=== PATIENT | male | born 1975 | race Caucasian/White ===

== ENCOUNTER 2023-06-18 20:47 | Emergency (ER) | payer BC, SELFPAY ==
[2023-06-18 21:04] VITALS: BP 133/81; PULSE 107; RESP 18; TEMP 36.2; O2SAT 97
[2023-06-18 23:40] VITALS: BP 134/78; PULSE 96; RESP 16; O2SAT 98
[2023-06-19] MEDS: AMOXICILLIN/CLAVULANATE K 875-125 MG TAB 1 TABLET PO (01:34)
[2023-06-19] MEDS: TETANUS,DIPHTHERIA,AC PERTUSSIS ADULT (0.5 ML) BOOSTRIX IM (01:34)
[2023-06-19] MEDS: RABIES VACCINE (RABAVERT) 2.5 UNITS VIAL IM (02:39)
[2023-06-19] MEDS: RABIES IMMUNE GLOBULIN/PF 1,500 UNITS/5 ML VIAL 1500 UNITS IM (02:39)
--- NOTE | 2023-06-19 02:43 | ED.ANIMALBIT ---
HPI - Animal Bite General Chief Complaint: Animal Bite Stated Complaint: bit by racoon Time Seen by Provider: 06/19/23 00:29 Source: patient Mode of arrival: ambulatory Limitations: no limitations History of Present Illness HPI narrative: Patient is a 47-year-old male who presents the ED with report of a raccoon bite. Patient reports his 15-year-old daughter picked up by a raccoon that was standing in the middle of the street. Patient then took the raccoon from her and states the raccoon became aggravated and began to scratch and bite him. He sustained several bite and scratch burr to bilateral arms. They then put the raccoon in a cage in his garage. Patient states the raccoon was not acting appropriately. States it was very subdued, and had drainage from his eyes. Patient denies significant pain. Denies fevers. Tetanus unknown. Related Data Allergies Allergy/AdvReac Type Severity Reaction Status Date / Time No Known Drug Allergies Allergy Unknown Unknown Verified 06/18/23 20:47 Review of Systems Review of Systems: CONSTITUTIONAL: Denies fever, chills, or sweats. SKIN: See HPI NEUROLOGIC: Denies numbness or weakness. All systems reviewed & are unremarkable except as noted in HPI and below Exam Narrative: GENERAL: Well appearing, well-nourished, non-toxic, in no acute distress. HEAD: Normocephalic, atraumatic. RESPIRATORY: Airway patent, respirations nonlabored. CARDIOVASCULAR: Regular rate and rhythm without murmurs, rubs, or gallops. radial pulses 2+. MUSCULOSKELETAL: Moves all extremities. No gross deformities. SKIN: Warm, dry, normal color. Several small superficial skin abrasions to right forearm. Small skin avulsion to right medial distal 1st digit finger pad. Area of abrasion/puncture wound/bite shikha to left ventral forearm. No active bleeding. NEURO: A&O X3. Speech clear. Cranial nerves II-XII grossly intact. Steady gait. No ataxic movements. PSYCHIATRIC: Appropriate mood and affect. Normal interaction. Course Vital Signs Vital signs: Vital Signs Temperature 97.2 F L 06/18/23 21:04 Pulse Rate 107 H 06/18/23 21:04 Respiratory Rate 18 06/18/23 21:04 Blood Pressure 133/81 06/18/23 21:04 Pulse Oximetry 97 06/18/23 21:04 Oxygen Delivery Room Air 06/18/23 21:04 Temperature 97.2 F L 06/18/23 21:04 Pulse Rate 89 06/19/23 03:05 Respiratory Rate 20 06/19/23 03:05 Blood Pressure 136/86 06/19/23 03:05 Pulse Oximetry 97 06/19/23 03:05 Oxygen Delivery Room Air 06/18/23 21:04 MDM - Animal Bite MDM Narrative Medical decision making narrative: Discussed case with Christina Albarran, Infection Control, will follow with patient and contact tomorrow for further information. advised to contact animal control for management of raccoon. Patient given rabies vaccine and immunoglobulin in ED. Given scripts for subsequent vaccine series. Tetanus updated in the ED. Will be started on Augmentin for animal bite. Patient given strict return precautions. He agrees with plan. Discharged in stable condition. Medical Records Attestation: I reviewed the patient's medical records. Discharge Plan Discharge Clinical Impression: Raccoon bite, Rabies, need for prophylactic vaccination against Patient Disposition: Home, Self-Care Condition: Stable Instructions: Antibiotic Form, Rabies Vaccine (By injection), Rabies Immune Globulin (By injection), Animal Bite (ED), Rabies (ED) Additional Instructions: Take antibiotics as prescribed. Keep wounds clean and dry. Wash daily with simple soap and water. Obtain rabies vaccine series as directed at outpatient lab on days 3, 7, 14. Take prescription sheets with you. Contact animal Control for further evaluation of raccoon. Return to the ED if you experience worsening or severe pain, fevers, unable to keep down food or drink, confusion, or any other symptoms of concern. Prescriptions: New amoxicillin-pot clavulanate
--- NOTE | 2023-06-19 03:02 | PC.NURSE ---
Simran SANDERS infiltrated the rabies immunoglobulin and vaccine around the injury site to the left forearm and this RN administered the IM injections to the right deltoid and right vastus lateralis.
[2023-06-19 03:05] VITALS: BP 136/86; PULSE 89; RESP 20; O2SAT 97
== END 2023-06-19 03:07 | disposition home or self-care (01) ==
PROVIDERS: Emergency Provider Physician Assistant; PCP Physician Assistant
DX: S51.852A Open bite of left forearm, initial encounter (principal); S61.051A Open bite of right thumb without damage to nail, initial encounter; Z29.14 Encounter for prophylactic rabies immune globulin; Z23 Encounter for immunization; W55.51XA Bitten by raccoon, initial encounter
CPT/HCPCS: 90471; 90472; 90675; 90715; 96372; 99283; 90375; A9270

== ENCOUNTER 2023-06-22 12:44 | Emergency (ER) | payer BC, SELFPAY ==
[2023-06-22 12:45] VITALS: BP 206/136; PULSE 106; RESP 18; TEMP 36.8; O2SAT 99
--- NOTE | 2023-06-22 13:05 | ED.GENADULT ---
HPI - General Adult General Chief complaint: Recheck/Abnormal Lab/Rx Stated complaint: need rabies vaccine Time Seen by Provider: 06/22/23 12:50 History of Present Illness HPI narrative: 47-year-old male presenting to the emergency department for evaluation after raccoon bite. Patient reports his 15-year-old daughter picked up a raccoon, patient went to take the raccoon from the daughter and the rack and became agitated and attacked him. Related Data Allergies Allergy/AdvReac Type Severity Reaction Status Date / Time No Known Drug Allergies Allergy Unknown Unknown Verified 06/22/23 13:01 Review of Systems Review of Systems: All systems reviewed & are unremarkable except as noted in HPI and below Exam Narrative: APPEARANCE: Well appearing, no pain, no distress, well-nourished. HEAD: normocephalic, atraumatic. EYES: PERRLA/EOMI, conjunctivae clear. NOSE: Normal no drainage EARS:TMS clear with good light reflex. THROAT: Pharynx clear, no exudate. NECK: Supple. No adenopathy, no masses. RESPIRATORY: Airway patent, respirations nonlabored. Clear to auscultation bilaterally, no rales, rhonchi, wheezing. CARDIOVASCULAR: Regular rate and rhythm without murmurs rubs or gallops. ABDOMINAL: Soft, nontender, nondistended, normal bowel sounds MUSCULOSKELETAL: Moves all extremities. Strength/ROM intact, No edema, No calf tenderness. NEURO: Alert. Cranial nerves II through XII intact. Good gait. Good coordination SKIN: Warm, dry. Normal Color PSYCHIATRIC: Normal affect/mood. Course Course Emergency Course: 47-year-old male presenting to the ED requiring a rabies vaccination. Patient did receive his reveals vaccination, patient tolerated the injection and patient was encouraged to continue with the series of injections. Patient still has his additional prescriptions. Vital Signs Vital signs: Vital Signs Temperature 98.3 F 06/22/23 12:45 Pulse Rate 106 H 06/22/23 12:45 Respiratory Rate 18 06/22/23 12:45 Blood Pressure 206/136 H 06/22/23 12:45 Pulse Oximetry 99 06/22/23 12:45 Oxygen Delivery Room Air 06/22/23 12:45 Temperature 98.3 F 06/22/23 12:45 Pulse Rate 100 06/22/23 13:08 Respiratory Rate 20 06/22/23 13:08 Blood Pressure 160/106 H 06/22/23 13:08 Pulse Oximetry 99 06/22/23 13:08 Oxygen Delivery Room Air 06/22/23 12:45 Medical Decision Making Vital Signs Vital Signs: Vital Signs Temperature 98.3 F 06/22/23 12:45 Pulse Rate 106 H 06/22/23 12:45 Respiratory Rate 18 06/22/23 12:45 Blood Pressure 206/136 H 06/22/23 12:45 Pulse Oximetry 99 06/22/23 12:45 Oxygen Delivery Room Air 06/22/23 12:45 Temperature 98.3 F 06/22/23 12:45 Pulse Rate 100 06/22/23 13:08 Respiratory Rate 20 06/22/23 13:08 Blood Pressure 160/106 H 06/22/23 13:08 Pulse Oximetry 99 06/22/23 13:08 Oxygen Delivery Room Air 06/22/23 12:45 Discharge Plan Discharge Clinical Impression: Need for rabies vaccination Patient Disposition: Home, Self-Care Condition: Stable Instructions: Antibiotic Form, Rabies Vaccine (By injection) Additional Instructions: Continue with the rabies series as directed. If you have any worsening symptoms or if you have any questions or concerns then please call or return to the emergency department. Prescriptions: No Action amoxicillin-pot clavulanate 875-125 mg tablet 1 tablet PO Q12H 7 Days Qty: 14 0RF Follow-up/Referrals: Aaron,Kristopher Barboza PA-C [Primary Care Provider] -
[2023-06-22 13:08] VITALS: BP 160/106; PULSE 100; RESP 20; O2SAT 99
[2023-06-22] MEDS: RABIES VACCINE (RABAVERT) 2.5 UNITS VIAL IM (13:31)
--- NOTE | 2023-06-23 14:35 | PC.NURSE ---
Attempted to call patient 06-19-2023 approximately 1930. There was no answer so a message was left to call my cell phone. Called patient 06-20-23 @ 1020: patient answered . He stated the [facility] health department called him 3 times on 06-10-23. Each time they discussed the bite. He denies they discussed collection / testing of the raccoon or follow up at a facility in [facility]. He states he has called animal control twice and they will not take care of the raccoon. He then called the [employer]. They said they would come get the animal for $100.00 or he could kill the animal himself and dispose of the animal in the trash. He states he killed the animal himself and put it in the trash. The trash has now been collected and the animal is no longer available. He was instructed to contact either hospital in his county and near his home for follow up vaccines. I suggested he go to the ED early in the day to avoid extended wait times - voiced understanding. Encouraged to call hospitals to see if he could set up an appointment or schedule an ED visit - he voiced understanding. I explained to him that I would call either facility with vaccination information or he could have staff nurse call me to get information upon arrival. Again he voiced understanding. On 06-22-23 patient arrived at [facility] and the warehouse checker was paged to give him his vaccine. She explained this could not be done as there was no insurance approval and he would have to through the ED. He was instructed again to go to [facility] facility for remaining vaccines. He voiced understanding.
== END 2023-06-22 13:47 | disposition home or self-care (01) ==
LOC: ANHED 13:41
PROVIDERS: Emergency Provider Emergency Medicine; PCP Physician Assistant
DX: Z29.14 Encounter for prophylactic rabies immune globulin (principal); Z23 Encounter for immunization
CPT/HCPCS: 90471; 90675; 99282